=== PATIENT | female | born 1970 | race Hispanic/Latino ===

== ENCOUNTER 2017-07-27 11:33 | Emergency (ER) | payer SELFPAY ==
--- NOTE | 2017-07-27 11:58 | Emergency Department Report ---
ED CPR HPI - General Chief Complaint: Cardiac Arrest/CPR Stated Complaint: CARDIAC ARREST Time Seen by Provider: 07/27/17 11:53 Source: EMS Mode of arrival: Ambulatory Limitations: Other - History of Present Illness Initial Comments: Medics inform me that the patient was last seen before midnight last night. Upon their arrival fire rescue was performing CPR. They found the patient blew and in asystole. They decided to carry forward resuscitative efforts. This consisted of Ambu bag assist. I do not know if they attempted intubation. They did place an IO catheter in the patient's right tibia. She did not respond to resuscitative efforts and remained in asystole throughout the course of her prolonged resuscitation. She arrives to this facility obviously DOA in asystole. Further resuscitative efforts would obviously be futile. MD Complaint: found unresponsive (in asystole) -: hour(s) Place: home Bystander CPR Performed: Yes (fire rescue) Shock Advised: No Initial Findings in the Field: no pulse, systole (asystole) ROSC in the Field: No Associated Injuries: No Treatments Prior to Arrival: epinephrine mgs #, other - Related Data Home Medications Medication Instructions Recorded Confirmed Last Taken Citalopram [Celexa] 20 mg PO QDAY 06/07/14 10/04/16 Unknown Lurasidone HCl [Latuda] 120 mg PO QDAY 06/07/14 10/04/16 Unknown Trazodone HCl [traZODone] 100 mg PO QHS 06/07/14 10/04/16 Unknown ALBUTEROL Inhaler [ProAir HFA 2 puff IH QID PRN 10/04/16 10/04/16 Unknown Inhaler] Levothyroxine [Synthroid] 100 mcg PO QAM 10/04/16 10/04/16 Unknown Ranitidine HCl [Zantac 150 MG TAB] 150 mg PO BID 10/04/16 10/04/16 Unknown metFORMIN [Glucophage] 500 mg PO BID 10/04/16 10/04/16 Unknown Previous Rx's Medication Instructions Recorded Last Taken Type Carvedilol [Coreg] 3.125 mg PO BID #60 tablet 06/12/14 Unknown Rx Furosemide [Lasix] 40 mg PO DAILY #30 tablet 06/12/14 Unknown Rx Lisinopril [Zestril TAB] 2.5 mg PO QDAY #30 tablet 06/12/14 Unknown Rx Potassium Chloride [K-Dur] 20 meq PO QDAY #30 tablet 06/12/14 Unknown Rx predniSONE [Deltasone] 20 mg PO QDAY #5 tablet 10/11/16 Unknown Rx Allergies Allergy/AdvReac Type Severity Reaction Status Date / Time No Known Allergies Allergy Unverified 06/07/14 11:06 ED Review of Systems ROS: Stated complaint: CARDIAC ARREST Other details as noted in HPI Comment: Unobtainable due to pts medical conditions ED Past Medical Hx - Past Medical History Hx Hypertension: Yes Hx Congestive Heart Failure: Yes Hx Diabetes: Yes Hx Psychiatric Treatment: Yes (bipolar) Hx Asthma: Yes Hx COPD: Yes (Asthma) - Social History Smoking Status: Unknown if ever smoked - Medications Home Medications: Home Medications Medication Instructions Recorded Confirmed Last Taken Type Citalopram [Celexa] 20 mg PO QDAY 06/07/14 10/04/16 Unknown History Lurasidone HCl [Latuda] 120 mg PO QDAY 06/07/14 10/04/16 Unknown History Trazodone HCl [traZODone] 100 mg PO QHS 06/07/14 10/04/16 Unknown History Carvedilol [Coreg] 3.125 mg PO BID #60 tablet 06/12/14 10/04/16 Unknown Rx Furosemide [Lasix] 40 mg PO DAILY #30 tablet 06/12/14 10/04/16 Unknown Rx Lisinopril [Zestril TAB] 2.5 mg PO QDAY #30 tablet 06/12/14 10/04/16 Unknown Rx Potassium Chloride [K-Dur] 20 meq PO QDAY #30 tablet 06/12/14 10/04/16 Unknown Rx ALBUTEROL Inhaler [ProAir HFA 2 puff IH QID PRN 10/04/16 10/04/16 Unknown History Inhaler] Levothyroxine [Synthroid] 100 mcg PO QAM 10/04/16 10/04/16 Unknown History Ranitidine HCl [Zantac 150 MG TAB] 150 mg PO BID 10/04/16 10/04/16 Unknown History metFORMIN [Glucophage] 500 mg PO BID 10/04/16 10/04/16 Unknown History predniSONE [Deltasone] 20 mg PO QDAY #5 tablet 10/11/16 Unknown Rx ED Physical Exam - General Limitations: Other General appearance: other (morbidly obese) - Head Head exam: Present: other (market cyanosis if not lividity of the entire face and neck) - Neck Neck exam: Present: normal inspection - Respiratory Respiratory exam: Present: other (no breath sounds) - Cardiovascular Cardiovascular Exam: Present: other (asystole on the monitor) - GI/Abdominal GI/Abdominal exam: Present: distended (quite distended) - Extremities Exam Extremities exam: Present: other (unremarkable) - Back Exam Back exam: Present: other (unable to visualize) - Neurological Exam Neurological exam: Present: other (GCS is 3) - Skin Skin exam: Present: other (markedly cyanotic) ED Course - Reevaluation(s) Reevaluation #1: Patient was pronounced on arrival in asystole. Family will be counseled when they arrive. 07/27/17 11:58 Critical care attestation.: If time is entered above; I have spent that time in minutes in the direct care of this critically ill patient, excluding procedure time. ED Disposition Clinical Impression: Cardiac arrest Disposition: DC-20 Is pt being admited?: No Does the pt Need Aspirin: No Condition: Stable Referrals: PRIMARY CARE, [Primary Care Provider] - 3-5 Days Time of Disposition: 11:58
== END 2017-07-27 14:26 ==
LOC: ED 11:33
DX: I46.9 Cardiac arrest, cause unspecified (principal); I50.9 Heart failure, unspecified; I10 Essential (primary) hypertension; E11.9 Type 2 diabetes mellitus without complications; J44.9 Chronic obstructive pulmonary disease, unspecified